=== PATIENT | female | born 1940 | race Caucasian/White ===

== ENCOUNTER 2023-02-19 12:37 | Outpatient (CLI) | payer MEDICARE | END 2023-02-19 23:59 | disposition EMS.NT | LOC: EMS 12:37 | DX: T63.441A Toxic effect of venom of bees, accidental (unintentional), initial encounter (principal) ==

== ENCOUNTER 2023-06-07 16:01 | Outpatient (CLI) | payer MEDICARE | END 2023-06-07 23:59 | disposition EMS.NT | LOC: EMS 16:01 | DX: Z03.89 Encounter for observation for other suspected diseases and conditions ruled out (principal) ==

== ENCOUNTER 2023-06-28 04:38 | Outpatient (CLI) | payer MEDICARE | END 2023-06-28 23:59 | disposition left against medical advice (07) | LOC: EMS 04:38 | DX: R30.9 Painful micturition, unspecified (principal); L29.8 Other pruritus ==

== ENCOUNTER 2023-06-28 09:00 | Outpatient (CLI) | payer MEDICARE | END 2023-06-28 09:15 | disposition home or self-care (01) | LOC: LAB.N 09:00 | PROVIDERS: ATTEND Specialist | DX: N39.0 Urinary tract infection, site not specified (principal) | CPT/HCPCS: 87077; 87086; 87181 ==